=== PATIENT | female | born 1955 | race Caucasian/White ===

== ENCOUNTER 2018-11-29 01:17 | Emergency (ER) | payer MEDICAID, OTHER ==
[~2018-11-29] VITALS: Ht 167.6 cm; Wt 79.5 kg
[2018-11-29] MEDS ORDERED: ondansetron/PF 4mg/2ml inj IV ONE ×2 (01:30→08:10)
[2018-11-29] MEDS ORDERED: normal saline 1000ML IV soln IVB ONE (01:30)
[2018-11-29 01:59] LABS: BASOPHILS # (AUTO) 0.1 X10'3 (0-0.2); BASOPHILS % (AUTO) 0.6 % (0-1); EOSINOPHILS # (AUTO) 0.2 X10'3 (0-0.9); EOSINOPHILS % (AUTO) 1.5 % (0-6); HEMATOCRIT 35.1 % (35.0-45.0); HEMOGLOBIN 11.2 g/dl (12.0-16.0); LYMPHOCYTES # (AUTO) 0.9 X10'3 (1.1-4.8); LYMPHOCYTES % (AUTO) 7.5 % (21-51); MEAN CORPUSCULAR HEMOGLOBIN 25.4 PG (27.0-31.0); MEAN CORPUSCULAR HGB CONC 31.8 g/dL (33.0-36.5); MEAN CORPUSCULAR VOLUME 79.8 FL (78-98); MEAN PLATELET VOLUME 8.4 FL (7.4-10.4); MONOCYTES # (AUTO) 0.9 X10'3 (0-0.9); MONOCYTES % (AUTO) 7.7 % (2-12); NEUTROPHILS # (AUTO) 9.6 X10'3 (1.8-7.7); NEUTROPHILS % (AUTO) 82.7 % (42-75); PLATELET COUNT 280 X10'3 (140-440); RED BLOOD COUNT 4.39 X10'6 (4.20-5.60); RED CELL DISTRIBUTION WIDTH 14.9 % (11.5-14.5); WHITE BLOOD COUNT 11.7 X10'3 (4.5-11.0)
[2018-11-29] MEDS: morphine 4 MG/ML inj SYRINge IV PRN ×2 (02:14→08:25)
[2018-11-29 02:21] LABS: ALANINE AMINOTRANSFERASE 39 U/L (12-78); ALBUMIN 2.4 G/DL (3.4-5.0); ALBUMIN/GLOBULIN RATIO 0.6 (1.1-1.5); ALKALINE PHOSPHATASE 366 IU/L (46-116); ANION GAP 7 (8-16); ASPARTATE AMINO TRANSFERASE 64 U/L (10-37); BILIRUBIN,TOTAL 1.1 MG/DL (0.1-1.0); BLOOD UREA NITROGEN 7 MG/DL (7-18); BUN/CREATININE RATIO 10.4 (6.6-38.0); CALCIUM 8.8 MG/DL (8.5-10.1); CHLORIDE 98 MMOL/L (99-107); CREATININE 0.67 MG/DL (0.40-0.90); GLUCOSE 110 MG/DL (70-104); LIPASE 79 U/L (73-393); POTASSIUM 3.8 MMOL/L (3.5-5.1); SODIUM 133 MMOL/L (135-145); TOTAL CARBON DIOXIDE 27.6 MMOL/L (24-32); TOTAL PROTEIN 6.3 G/DL (6.4-8.2); eGFR 89 ML/MIN
[2018-11-29] MEDS ORDERED: ONDA8TAB6 PO (02:28)
--- NOTE | 2018-11-29 06:30 | NUR ---
Patients daughter informed of plan of care for social work administrator consult
--- NOTE | 2018-11-29 07:23 | NUR ---
Patient was given a cup of coffee and updated on time line for drug abuse social worker
[2018-11-29] MEDS ORDERED: OXYC-511 PO (10:18)
--- NOTE | 2018-11-29 11:09 | NUR ---
patient is in bed sleeping. Patient daughter updated on plan of care and discharge due to the help of Zahraa from manager social services. We are currently waiting on transport to be arranged from [facility].
--- NOTE | 2018-11-29 12:04 | NUR ---
Patient walked to restroom
[2018-11-29] MEDS ORDERED: ONDA4TAB6 PO (12:24)
[2018-11-29] MEDS ORDERED: IBUP-1985 PO (12:24)
[2018-11-29] MEDS ORDERED: HYDR-4353 PO (12:24)
[2018-11-29 13:06] VITALS: BP 127/66
== END 2018-11-29 14:31 | disposition home or self-care (01) ==
LOC: ER 01:18
DX: R11.2 Nausea with vomiting, unspecified (principal); C18.9 Malignant neoplasm of colon, unspecified; C78.7 Secondary malignant neoplasm of liver and intrahepatic bile duct; R10.11 Right upper quadrant pain; G89.29 Other chronic pain; Z56.0 Unemployment, unspecified; Z91.040 Latex allergy status
CPT/HCPCS: 36415; 74176; 80053; 83690; 85025; 96374; 96375; 96376; 99284; J2270; J2405; J7030